=== PATIENT | female | born 1945 | race Caucasian/White ===

== ENCOUNTER 2017-02-10 16:13 | Emergency (ER) | payer MEDICARE, OTHER ==
[~2017-02-10] VITALS: Ht 162.6 cm; Wt 89.3 kg
[~2017-02-10 16:13] MED LIST: AMLO10TA2 PO; CHOLESTEROL MED; LEFL10TA14 PO; LEVO100T PO; LISI2.5T PO; LOPE2CAP PO; LORA0.5T PO; METO25TA35 PO; SULF500T36 PO
[2017-02-10] MEDS ORDERED: MORPHINE SULFATE 4 MG/ML, 1ML IVPush PRN (18:00)
[2017-02-10] MEDS ORDERED: SODIUM CHLORIDE FLUSH 10ML SYR IVF ONE (18:00)
[2017-02-10] MEDS ORDERED: ONDANSETRON 2MG/ML, 2ML IVPush ONE (18:00)
[2017-02-10] MEDS ORDERED: MORPHINE SULFATE 4 MG/ML, 1ML ONE (18:07)
[2017-02-10] MEDS ORDERED: ONDANSETRON 2MG/ML, 2ML ONE (18:08)
[2017-02-10 18:51] LABS: BLOOD UREA NITROGEN 11 mg/dL (7-18)
[2017-02-10] MEDS ORDERED: KETOROLAC 30 MG/1 ML ONE (19:21)
[2017-02-10] MEDS ORDERED: DIAZEPAM 5 MG/ML, 2ML IV ONE (19:30)
[2017-02-10] MEDS ORDERED: KETOROLAC 30 MG/1 ML IVPush ONE (19:30)
[2017-02-10] MEDS ORDERED: SODIUM CHLORIDE 0.9%, 500ML IVBOLUS ONE (21:00)
[2017-02-10 21:10] VITALS: BP 111/52
== END 2017-02-10 21:25 | disposition home or self-care (01) ==
LOC: ED 21:19
DX: M54.5 Low back pain (principal); I10 Essential (primary) hypertension; E03.9 Hypothyroidism, unspecified; M06.9 Rheumatoid arthritis, unspecified; Z86.73 Personal history of transient ischemic attack (TIA), and cerebral infarction without residual deficits
CPT/HCPCS: 36415; 74176; 80048; 81003; 82040; 83605; 85025; 87040; 96374; 96375; 99285; J1885; J2405; J7040

== ENCOUNTER 2017-05-01 15:04 | Inpatient (IN) | payer MEDICARE ==
[~2017-05-01] VITALS: Ht 162.6 cm; Wt 87.1 kg
[2017-05-01] MEDS ORDERED: SODIUM CHLORIDE FLUSH 10ML SYR IVF ONE (15:30)
[2017-05-01 15:43] LABS: HEMOGLOBIN 8.5 g/dL (11.7-16.4); WHITE BLOOD COUNT 3.6 x10^3/uL (3.4-10)
[2017-05-01 15:53] LABS: ASPARTATE AMINO TRANSFERASE 16 U/L (15-37); BLOOD UREA NITROGEN 13 mg/dL (7-18)
[2017-05-01 16:01] LABS: IS PT STATUS REG ER OR PRE ER? YES
[2017-05-01] MEDS ORDERED: OMEP20TA62 PO (17:01)
[2017-05-01] MEDS ORDERED: TOFA5TAB PO (17:01)
[2017-05-01] MEDS ORDERED: LEVO112T2 PO (17:01)
[2017-05-01] MEDS ORDERED: BISACODYL 10 MG SUPP PR PRN (18:00)
[2017-05-01] MEDS ORDERED: DOCUSATE 100 MG CAPSULE PO PRN (18:00)
[2017-05-01] MEDS ORDERED: POLYETHYLENE GLYCOL 17 GM PACKET PO PRN (18:00)
[2017-05-01] MEDS ORDERED: OMNIPAQUE 350 MG/ML, 100ML BOTTLE ONE (18:17)
[2017-05-01 18:34] LABS: IS PT STATUS REG ER OR PRE ER? YES
[2017-05-01 20:05] VITALS: BP 123/63
[2017-05-01] MEDS ORDERED: HYDROcodone/APAP 5/325 TABLET PO ONE (21:00)
[2017-05-01] MEDS: LORazepam 0.5MG TABLET PO SCH (21:17)
[2017-05-01] MEDS: METOPROLOL TARTRATE 25 MG TABLET PO SCH (21:17)
[2017-05-01] MEDS: HEPARIN 5,000 UNITS/ML, 1ML SQ SCH (21:18)
[2017-05-01 22:22] VITALS: BP 99/56
[2017-05-01 22:42] VITALS: BP 106/51
[2017-05-01 22:58] VITALS: BP 112/61
[2017-05-02 01:18] LABS: IS PT STATUS REG ER OR PRE ER? NO
[2017-05-02 01:42] VITALS: BP 100/55
[2017-05-02 01:45] VITALS: BP 100/55
[2017-05-02] MEDS: LEVOTHYROXINE 112 MCG TABLET PO SCH (05:10)
[2017-05-02] MEDS: HEPARIN 5,000 UNITS/ML, 1ML SQ SCH ×3 (05:10→20:52)
[2017-05-02 05:33] LABS: HEMATOCRIT 28.8 % (34.6-47.8); HEMOGLOBIN 9.4 g/dL (11.7-16.4); WHITE BLOOD COUNT 3.1 x10^3/uL (3.4-10)
[2017-05-02 05:51] LABS: PATH.CAST-FLAG NOT PRESENT; SPERM-FLAG NOT PRESENT; SRC-FLAG NOT PRESENT; XTAL-FLAG NOT PRESENT; YLC-FLAG NOT PRESENT
[2017-05-02 06:00] LABS: ASPARTATE AMINO TRANSFERASE 31 U/L (15-37); BLOOD UREA NITROGEN 11 mg/dL (7-18)
[2017-05-02 07:52] VITALS: BP 121/64
[2017-05-02] MEDS: LISINOPRIL 5 MG TABLET PO SCH (08:30)
[2017-05-02] MEDS: ASPIRIN 325 MG TABLET PO SCH (08:30)
[2017-05-02] MEDS: METOPROLOL TARTRATE 25 MG TABLET PO SCH ×2 (08:30→20:49)
[2017-05-02] MEDS: LORazepam 0.5MG TABLET PO SCH ×3 (08:30→20:49)
[2017-05-02] MEDS: ACETAMINOPHEN 325 MG TABLET PO PRN ×2 (08:31→14:26)
[2017-05-02] MEDS: HYDROcodone/APAP 5/325 TABLET PO PRN ×2 (11:34→18:04)
[2017-05-02] MEDS ORDERED: MAGNESIUM SULFATE PMX 2GM/50ML 50 ML IV ONE (12:00)
[2017-05-02 12:27] LABS: TOTAL IRON BINDING CAPACITY 333 mcg/dL (250-450)
[2017-05-02 14:31] VITALS: BP 102/57
[2017-05-02] MEDS ORDERED: DOCUSATE 100 MG CAPSULE PO PRN (18:30)
[2017-05-02] MEDS ORDERED: POLYETHYLENE GLYCOL 17 GM PACKET PO PRN (18:30)
[2017-05-02] MEDS ORDERED: BISACODYL 10 MG SUPP PR PRN (18:30)
[2017-05-02 21:02] VITALS: BP 146/77
[2017-05-02] MEDS ORDERED: HYDROcodone/APAP 5/325 TABLET PO ONE (22:30)
[2017-05-02] MEDS ORDERED: OMEPRAZOLE 20 MG CAPSULE.DR PO SCH (22:30)
[2017-05-03 02:08] VITALS: BP 146/81
[2017-05-03] MEDS: ASPIRIN 325 MG TABLET PO SCH (06:11)
[2017-05-03] MEDS: HEPARIN 5,000 UNITS/ML, 1ML SQ SCH (06:11)
[2017-05-03] MEDS: LEVOTHYROXINE 112 MCG TABLET PO SCH (06:11)
[2017-05-03 07:35] VITALS: BP 133/80
[2017-05-03] MEDS: LISINOPRIL 5 MG TABLET PO SCH (09:05)
[2017-05-03] MEDS: METOPROLOL TARTRATE 25 MG TABLET PO SCH (09:05)
[2017-05-03] MEDS: LORazepam 0.5MG TABLET PO SCH (09:05)
[2017-05-03] MEDS: HYDROcodone/APAP 5/325 TABLET PO PRN ×2 (09:11→16:06)
[2017-05-03 11:38] LABS: HEMATOCRIT 30.6 % (34.6-47.8); HEMOGLOBIN 9.7 g/dL (11.7-16.4); WHITE BLOOD COUNT 3.5 x10^3/uL (3.4-10)
[2017-05-13] MEDS ORDERED: FERROUS SULFATE 325 MG TABLET PO SCH (20:00)
== END 2017-05-03 15:30 | disposition home or self-care (01) | DRG 919 ==
LOC: ED 16:32 → EDIP 16:33 → ED 16:51 → 4WST 20:14
PROVIDERS: ADMIT Internal Medicine; ATTEND Internal Medicine
PROC: 30233N1 Transfusion of Nonautologous Red Blood Cells into Peripheral Vein, Percutaneous Approach (ICD-10-PCS; principal; 2017-05-01)
DX: M96.830 Postprocedural hemorrhage of a musculoskeletal structure following a musculoskeletal system procedure (principal); E43 Unspecified severe protein-calorie malnutrition; D64.9 Anemia, unspecified; M06.9 Rheumatoid arthritis, unspecified; I10 Essential (primary) hypertension; E03.9 Hypothyroidism, unspecified; Z66 Do not resuscitate; Z96.651 Presence of right artificial knee joint; Z86.711 Personal history of pulmonary embolism; Z86.718 Personal history of other venous thrombosis and embolism; Z87.891 Personal history of nicotine dependence; Z98.49 Cataract extraction status, unspecified eye; Z90.710 Acquired absence of both cervix and uterus; Z90.49 Acquired absence of other specified parts of digestive tract; Z82.49 Family history of ischemic heart disease and other diseases of the circulatory system; Z79.899 Other long term (current) drug therapy; Y83.9 Surgical procedure, unspecified as the cause of abnormal reaction of the patient, or of later complication, without mention of misadventure at the time of the procedure
CPT/HCPCS: 36415; 71010; 71275; 80053; 81001; 83540; 83550; 83735; 83880; 84100; 84443; 84484; 85025; 85610; 86850; 86900; 86923; 93005; 97161; 99285; J1644; Q9967; J3475; P9016

== ENCOUNTER 2017-05-05 16:06 | Emergency (ER) | payer MEDICARE ==
[~2017-05-05] VITALS: Ht 162.6 cm; Wt 84.0 kg
[~2017-05-05 16:06] MED LIST changes: +LEVO112T2 PO; +OMEP20TA62 PO; +TOFA5TAB PO
[2017-05-05] MEDS ORDERED: SODIUM CHLORIDE 0.9% 1,000 ML IV ONE (16:15)
[2017-05-05] MEDS ORDERED: SODIUM CHLORIDE FLUSH 10ML SYR IVF ONE (16:30)
[2017-05-05] MEDS ORDERED: MORPHINE SULFATE 4 MG/ML, 1ML IVPush PRN ×2 (17:00→18:30)
[2017-05-05] MEDS ORDERED: ONDANSETRON 2MG/ML, 2ML IVPush ONE ×2 (17:00→18:30)
[2017-05-05] MEDS ORDERED: HYDR-3237 PO (17:12)
[2017-05-05 17:16] LABS: HEMATOCRIT 33.5 % (34.6-47.8); HEMOGLOBIN 10.6 g/dL (11.7-16.4); WHITE BLOOD COUNT 5.7 x10^3/uL (3.4-10)
[2017-05-05 17:19] LABS: BLOOD UREA NITROGEN 9 mg/dL (7-18)
[2017-05-05 17:24] LABS: ASPARTATE AMINO TRANSFERASE 20 U/L (15-37)
[2017-05-05 17:25] LABS: IS PT STATUS REG ER OR PRE ER? YES
[2017-05-05] MEDS ORDERED: MORPHINE SULFATE 4 MG/ML, 1ML ONE (18:43)
[2017-05-05] MEDS ORDERED: ONDANSETRON 2MG/ML, 2ML ONE (18:43)
[2017-05-05] MEDS ORDERED: OXYcodone/APAP 5/325MG TABLET ONE (19:44)
[2017-05-05] MEDS ORDERED: OXYcodone/APAP 5/325MG TABLET PO ONE (20:00)
[2017-05-05] MEDS ORDERED: OMNIPAQUE 350 MG/ML, 100ML BOTTLE ONE (20:19)
[2017-05-05 21:45] VITALS: BP 135/60
== END 2017-05-05 21:48 | disposition home or self-care (01) ==
LOC: ED 21:20
DX: R53.1 Weakness (principal); S80.01XA Contusion of right knee, initial encounter; R06.09 Other forms of dyspnea; I25.2 Old myocardial infarction; E03.9 Hypothyroidism, unspecified; I10 Essential (primary) hypertension; M06.9 Rheumatoid arthritis, unspecified; Z86.73 Personal history of transient ischemic attack (TIA), and cerebral infarction without residual deficits; Z86.718 Personal history of other venous thrombosis and embolism; Z86.711 Personal history of pulmonary embolism; Z86.2 Personal history of diseases of the blood and blood-forming organs and certain disorders involving the immune mechanism; Z96.651 Presence of right artificial knee joint; X58.XXXA Exposure to other specified factors, initial encounter; Y93.89 Activity, other specified; Y99.8 Other external cause status; Y92.89 Other specified places as the place of occurrence of the external cause
CPT/HCPCS: 36415; 71010; 71275; 76881; 80053; 84484; 85025; 93005; 93971; 99285; Q9967

== ENCOUNTER 2017-05-13 16:03 | Inpatient (IN) | payer MEDICARE ==
[~2017-05-13] VITALS: Ht 162.6 cm; Wt 90.4 kg
[~2017-05-13 16:03] MED LIST changes: +HYDR-3237 PO
[2017-05-13] MEDS ORDERED: SODIUM CHLORIDE 0.9% 1,000 ML IV ONE (16:12)
[2017-05-13] MEDS ORDERED: ASPIRIN 81 MG TABLET CHEW PO ONE (16:30)
[2017-05-13] MEDS ORDERED: SODIUM CHLORIDE FLUSH 10ML SYR IVF ONE (16:30)
[2017-05-13 16:54] LABS: HEMATOCRIT 33.7 % (34.6-47.8); HEMOGLOBIN 10.8 g/dL (11.7-16.4); WHITE BLOOD COUNT 4.2 x10^3/uL (3.4-10)
[2017-05-13] MEDS ORDERED: ASPIRIN 81 MG TABLET CHEW ONE (17:00)
[2017-05-13 17:04] LABS: BLOOD UREA NITROGEN 15 mg/dL (7-18)
[2017-05-13 17:10] LABS: IS PT STATUS REG ER OR PRE ER? YES
[2017-05-13] MEDS ORDERED: METO25TA35 PO (17:41)
[2017-05-13] MEDS ORDERED: CITA10TA8 PO (17:41)
[2017-05-13] MEDS ORDERED: AMLO5TAB2 PO (17:41)
[2017-05-13] MEDS ORDERED: ATOR20TA PO (17:41)
[2017-05-13] MEDS: SODIUM CHLORIDE 0.9% 1,000 ML IV SCH (19:59)
[2017-05-13] MEDS ORDERED: ONDANSETRON 2MG/ML, 2ML IVPush PRN (20:00)
[2017-05-13] MEDS ORDERED: HYDROcodone/APAP 5/325 TABLET ONE (20:03)
[2017-05-13] MEDS: HYDROcodone/APAP 5/325 TABLET PO PRN (20:06)
[2017-05-13 21:37] VITALS: BP 141/82
[2017-05-13 21:43] VITALS: BP_SYST 105; BP_SYST 107; BP_SYST 108; BP_DIAS 66; BP_DIAS 70; BP_DIAS 72
[2017-05-13] MEDS: FERROUS SULFATE 325 MG TABLET PO SCH (22:01)
[2017-05-13] MEDS: ATORVASTATIN 20 MG TABLET PO SCH (22:01)
[2017-05-13] MEDS: HEPARIN 5,000 UNITS/ML, 1ML SQ SCH (23:19)
[2017-05-13] MEDS: OMEPRAZOLE 20 MG CAPSULE.DR PO SCH (23:20)
[2017-05-14 02:05] VITALS: BP_SYST 122; BP_SYST 135; BP_SYST 97; BP_DIAS 64; BP_DIAS 77; BP_DIAS 78
[2017-05-14] MEDS: HYDROcodone/APAP 5/325 TABLET PO PRN ×4 (02:09→21:40)
[2017-05-14] MEDS: LEVOTHYROXINE 112 MCG TABLET PO SCH (05:35)
[2017-05-14 07:12] VITALS: BP_SYST 100; BP_SYST 101; BP_SYST 117; BP_DIAS 68; BP_DIAS 74
[2017-05-14] MEDS: FERROUS SULFATE 325 MG TABLET PO SCH ×2 (08:09→17:00)
[2017-05-14] MEDS: HEPARIN 5,000 UNITS/ML, 1ML SQ SCH ×2 (08:09→17:40)
[2017-05-14] MEDS: SODIUM CHLORIDE 0.9% 1,000 ML IV SCH ×2 (09:41→17:40)
[2017-05-14 15:40] VITALS: BP 133/81
[2017-05-14] MEDS: OMEPRAZOLE 20 MG CAPSULE.DR PO SCH (20:05)
[2017-05-14] MEDS: ATORVASTATIN 20 MG TABLET PO SCH (20:05)
[2017-05-14 20:28] VITALS: BP 141/77
[2017-05-15] VITALS (8 sets, daily range): BP systolic 124–155; BP diastolic 66–91
[2017-05-15] MEDS: HEPARIN 5,000 UNITS/ML, 1ML SQ SCH ×3 (02:00→18:23)
[2017-05-15] MEDS: SODIUM CHLORIDE 0.9% 1,000 ML IV SCH ×3 (02:00→18:23)
[2017-05-15] MEDS: LEVOTHYROXINE 112 MCG TABLET PO SCH (05:58)
[2017-05-15] MEDS: FERROUS SULFATE 325 MG TABLET PO SCH ×2 (08:00→16:54)
[2017-05-15] MEDS: HYDROcodone/APAP 5/325 TABLET PO PRN ×2 (13:31→20:46)
[2017-05-15] MEDS: ATORVASTATIN 20 MG TABLET PO SCH (20:46)
[2017-05-15] MEDS: OMEPRAZOLE 20 MG CAPSULE.DR PO SCH (20:46)
[2017-05-16] MEDS: HYDROcodone/APAP 5/325 TABLET PO PRN ×4 (00:15→21:27)
[2017-05-16] MEDS: SODIUM CHLORIDE 0.9% 1,000 ML IV SCH ×3 (01:46→21:10)
[2017-05-16 01:49] VITALS: BP_SYST 134; BP_SYST 159; BP_DIAS 78; BP_DIAS 90
[2017-05-16 01:50] VITALS: BP 146/83
[2017-05-16] MEDS: HEPARIN 5,000 UNITS/ML, 1ML SQ SCH ×3 (05:16→21:11)
[2017-05-16] MEDS: LEVOTHYROXINE 112 MCG TABLET PO SCH (05:16)
[2017-05-16 07:06] VITALS: BP_SYST 137; BP_SYST 138; BP_SYST 150; BP_DIAS 84; BP_DIAS 85; BP_DIAS 86
[2017-05-16] MEDS: FERROUS SULFATE 325 MG TABLET PO SCH ×2 (08:00→17:00)
[2017-05-16 13:27] VITALS: BP_SYST 144; BP_SYST 154; BP_SYST 171; BP_DIAS 104; BP_DIAS 116; BP_DIAS 93
[2017-05-16] MEDS ORDERED: LORazepam 1MG TABLET ONE (14:19)
[2017-05-16] MEDS: LORazepam 0.5MG TABLET PO PRN (14:23)
[2017-05-16 21:05] VITALS: BP_SYST 147; BP_SYST 158; BP_SYST 165; BP_DIAS 86; BP_DIAS 89; BP_DIAS 91
[2017-05-16] MEDS: ATORVASTATIN 20 MG TABLET PO SCH (21:10)
[2017-05-16] MEDS: OMEPRAZOLE 20 MG CAPSULE.DR PO SCH (21:11)
[2017-05-17] VITALS (7 sets, daily range): BP systolic 126–169; BP diastolic 69–116
[2017-05-17] MEDS: SODIUM CHLORIDE 0.9% 1,000 ML IV SCH ×4 (05:25→22:03)
[2017-05-17] MEDS: LEVOTHYROXINE 112 MCG TABLET PO SCH (05:25)
[2017-05-17] MEDS: HEPARIN 5,000 UNITS/ML, 1ML SQ SCH ×3 (05:25→22:24)
[2017-05-17] MEDS: FERROUS SULFATE 325 MG TABLET PO SCH ×2 (08:00→17:00)
[2017-05-17] MEDS: HYDROcodone/APAP 5/325 TABLET PO PRN ×2 (15:35→22:23)
[2017-05-17] MEDS ORDERED: SODIUM CHLORIDE 0.9% 1,000 ML IV SCH (18:00)
[2017-05-17] MEDS ORDERED: hydrALAzine 20 MG/ML, 1ML IV PRN (18:00)
[2017-05-17] MEDS ORDERED: LORazepam 1MG TABLET ONE (22:19)
[2017-05-17] MEDS: LORazepam 0.5MG TABLET PO PRN (22:23)
[2017-05-17] MEDS: OMEPRAZOLE 20 MG CAPSULE.DR PO SCH (22:23)
[2017-05-17] MEDS: ATORVASTATIN 20 MG TABLET PO SCH (22:23)
[2017-05-18] VITALS (8 sets, daily range): BP systolic 114–155; BP diastolic 77–87
[2017-05-18 05:10] LABS: BLOOD UREA NITROGEN 6 mg/dL (7-18)
[2017-05-18 05:11] LABS: HEMATOCRIT 30.5 % (34.6-47.8); HEMOGLOBIN 9.9 g/dL (11.7-16.4); WHITE BLOOD COUNT 3.2 x10^3/uL (3.4-10)
[2017-05-18] MEDS: LEVOTHYROXINE 112 MCG TABLET PO SCH (05:35)
[2017-05-18] MEDS: HEPARIN 5,000 UNITS/ML, 1ML SQ SCH ×3 (05:36→22:39)
[2017-05-18] MEDS: FERROUS SULFATE 325 MG TABLET PO SCH ×2 (08:00→17:00)
[2017-05-18] MEDS: SODIUM CHLORIDE 0.9% 1,000 ML IV SCH (11:24)
[2017-05-18] MEDS: HYDROcodone/APAP 5/325 TABLET PO PRN ×2 (11:26→21:26)
[2017-05-18] MEDS ORDERED: POLYETHYLENE GLYCOL 17 GM PACKET PO PRN (14:00)
[2017-05-18] MEDS ORDERED: POTASSIUM CHLORIDE 20 MEQ TAB.ER.PRT PO ONE (15:00)
[2017-05-18] MEDS ORDERED: SODIUM CHLORIDE 0.9% 1,000 ML IV SCH (18:24)
[2017-05-18] MEDS: OMEPRAZOLE 20 MG CAPSULE.DR PO SCH (21:26)
[2017-05-18] MEDS: ATORVASTATIN 20 MG TABLET PO SCH (21:26)
[2017-05-18] MEDS: METOPROLOL TARTRATE 25 MG TABLET PO SCH (21:26)
[2017-05-19] MEDS: LORazepam 0.5MG TABLET PO PRN (00:47)
[2017-05-19] MEDS: SODIUM CHLORIDE 0.9% 1,000 ML IV SCH ×2 (00:47→13:23)
[2017-05-19 04:00] VITALS: BP 125/74
[2017-05-19 05:04] LABS: BLOOD UREA NITROGEN 7 mg/dL (7-18)
[2017-05-19] MEDS: LEVOTHYROXINE 112 MCG TABLET PO SCH (06:09)
[2017-05-19] MEDS: HEPARIN 5,000 UNITS/ML, 1ML SQ SCH ×3 (06:09→21:10)
[2017-05-19] MEDS: FERROUS SULFATE 325 MG TABLET PO SCH ×2 (08:00→17:00)
[2017-05-19 08:15] VITALS: BP_SYST 123; BP_SYST 140; BP_SYST 142; BP_DIAS 79; BP_DIAS 81; BP_DIAS 84
[2017-05-19] MEDS: METOPROLOL TARTRATE 25 MG TABLET PO SCH ×2 (09:01→21:10)
[2017-05-19] MEDS: HYDROcodone/APAP 5/325 TABLET PO PRN (13:22)
[2017-05-19 13:25] VITALS: BP 142/79
[2017-05-19 19:46] VITALS: BP 134/79
[2017-05-19 19:47] VITALS: BP 124/78
[2017-05-19 19:48] VITALS: BP 120/73
[2017-05-19] MEDS: OMEPRAZOLE 20 MG CAPSULE.DR PO SCH (21:10)
[2017-05-19] MEDS: ATORVASTATIN 20 MG TABLET PO SCH (21:10)
[2017-05-20] VITALS (7 sets, daily range): BP systolic 143–169; BP diastolic 75–98
[2017-05-20] MEDS: SODIUM CHLORIDE 0.9% 1,000 ML IV SCH (02:37)
[2017-05-20] MEDS: HEPARIN 5,000 UNITS/ML, 1ML SQ SCH ×3 (06:07→20:09)
[2017-05-20] MEDS: LEVOTHYROXINE 112 MCG TABLET PO SCH (06:08)
[2017-05-20] MEDS: FERROUS SULFATE 325 MG TABLET PO SCH ×2 (08:00→17:00)
[2017-05-20] MEDS: METOPROLOL TARTRATE 25 MG TABLET PO SCH ×2 (09:04→20:09)
[2017-05-20] MEDS ORDERED: LISINOPRIL 10 MG TABLET PO SCH (12:00)
[2017-05-20] MEDS: LORazepam 0.5MG TABLET PO PRN (16:48)
[2017-05-20] MEDS: LISINOPRIL 20 MG TABLET PO SCH (20:08)
[2017-05-20] MEDS: HYDROcodone/APAP 5/325 TABLET PO PRN (20:09)
[2017-05-20] MEDS: OMEPRAZOLE 20 MG CAPSULE.DR PO SCH (20:09)
[2017-05-20] MEDS: ATORVASTATIN 20 MG TABLET PO SCH (20:13)
[2017-05-21 02:30] VITALS: BP 156/80
[2017-05-21] MEDS: HEPARIN 5,000 UNITS/ML, 1ML SQ SCH (06:00)
[2017-05-21] MEDS: LEVOTHYROXINE 112 MCG TABLET PO SCH (06:04)
[2017-05-21] MEDS: LISINOPRIL 20 MG TABLET PO SCH (06:05)
[2017-05-21 06:07] VITALS: BP 160/79
[2017-05-21 07:47] VITALS: BP 158/90
[2017-05-21] MEDS: FERROUS SULFATE 325 MG TABLET PO SCH (08:00)
[2017-05-21] MEDS: METOPROLOL TARTRATE 25 MG TABLET PO SCH (08:22)
[2017-05-21] MEDS ORDERED: FERR-36 PO (09:37)
[2017-05-21] MEDS ORDERED: LISI-170 PO (09:37)
[2017-05-21] MEDS ORDERED: POLY17PO5 PO (09:37)
[2017-05-21 09:40] VITALS: BP 122/82
[2017-05-21] MEDS ORDERED: CALCIUM GLUCONATE 4.6 MEQ in SODIUM CHLORIDE 0.9% 50 ML IV ONE (10:00)
== END 2017-05-21 13:44 | disposition home or self-care (01) | DRG 312 ==
LOC: ED 16:35 → EDIP 18:37 → 5SO 20:51 → 4WST 05-14 18:56 → DCLOUNGE 05-21 12:55
PROVIDERS: ADMIT Hospitalist; ATTEND Hospitalist
DX: I95.1 Orthostatic hypotension (principal); N17.9 Acute kidney failure, unspecified; M06.9 Rheumatoid arthritis, unspecified; I12.9 Hypertensive chronic kidney disease with stage 1 through stage 4 chronic kidney disease, or unspecified chronic kidney disease; N18.3 Chronic kidney disease, stage 3 (moderate); D50.9 Iron deficiency anemia, unspecified; E03.9 Hypothyroidism, unspecified; Z96.651 Presence of right artificial knee joint; F41.9 Anxiety disorder, unspecified; I25.2 Old myocardial infarction; Z79.82 Long term (current) use of aspirin; Z86.711 Personal history of pulmonary embolism; Z86.718 Personal history of other venous thrombosis and embolism; Z86.73 Personal history of transient ischemic attack (TIA), and cerebral infarction without residual deficits; Z87.891 Personal history of nicotine dependence; Z79.899 Other long term (current) drug therapy
CPT/HCPCS: 36415; 71020; 80048; 81003; 82040; 83880; 84443; 84484; 85025; 87040; 93005; 93306; 99291; J0610; J1644; J7030